=== PATIENT | male | born 2005 | race Caucasian/White ===

== ENCOUNTER 2025-02-09 00:13 | Emergency (ER) | payer BC, SELFPAY ==
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
[2025-02-09 00:29] VITALS: BP 108/64; PULSE 80; RESP 18; TEMP 36.4; O2SAT 99
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
[2025-02-09] MEDS: ACETAMINOPHEN 500 MG TABLET 1000 MG PO (02:02)
[2025-02-09] MEDS: IBUPROFEN 600 MG TABLET PO (02:02)
== END 2025-02-09 02:07 | disposition home or self-care (01) ==
LOC: ANHED 01:56
PROVIDERS: Emergency Provider Student in an Organized Health Care Education/Training Program
DX: M25.562 Pain in left knee (principal); V43.52XA Car driver injured in collision with other type car in traffic accident, initial encounter
CPT/HCPCS: 73562; 99283; A9270